=== PATIENT | female | born 1985 | race African-American/Black ===

== ENCOUNTER 2017-09-17 14:53 | Emergency (ER) | payer OTHER, BC ==
[2017-09-17 15:06] VITALS: BP 133/89; PULSE 97; TEMP 98.7; BMI 24.7
--- NOTE | 2017-09-17 15:06 | PDOC ---
Rapid Medical Evaluation Chief Complaint: Injury Time Seen by Provider: 09/17/17 15:01 Medical Evaluation: 09/17/17 15:03 I have performed a brief in-person evaluation of this patient. The patient presents with a chief complaint of: B/l hand pain after using hands to turn minor minor at work 2 days ago. No injury otherwise Pertinent physical exam findings:unremarkable I have ordered the following:nothing The patient will proceed to the ED for further evaluation.
--- NOTE | 2017-09-17 15:44 | PDOC ---
History of Present Illness - General Chief Complaint: Injury Stated Complaint: INJURY TO HANDS Time Seen by Provider: 09/17/17 15:01 History Source: Patient Past History - Past Medical History Allergies/Adverse Reactions: Allergies Allergy/AdvReac Type Severity Reaction Status Date / Time No Known Allergies Allergy Verified 09/17/17 15:06 Home Medications: Ambulatory Orders NK [No Known Home Medication] 09/17/17 COPD: No Other medical history: EXZEMA - Suicide/Smoking/Psychosocial Hx Smoking History: Never smoked Hx Alcohol Use: No Drug/Substance Use Hx: No Substance Use Type: None *Physical Exam - Vital Signs Last Vital Signs Temp Pulse Resp BP Pulse Ox 98.7 F 97 H 20 133/89 99 09/17/17 15:03 09/17/17 15:03 09/17/17 15:03 09/17/17 15:03 09/17/17 15:03 *DC/Admit/Observation/Transfer Diagnosis at time of Disposition: Wrist pain Qualifiers: Laterality: bilateral Qualified Code(s): M25.531 - Pain in right wrist Radial nerve irritation Qualifiers: Laterality: unspecified laterality Qualified Code(s): G56.30 - Lesion of radial nerve, unspecified upper limb - Discharge Dispostion Disposition: HOME Condition at time of disposition: Good Admit: No - Referrals Referrals: Sravan Villa MD [Staff Physician] - - Patient Instructions Printed Discharge Instructions: DI for Wrist Pain Additional Instructions: You irritated the radial nerves of your wrists bilaterally at work when you were twisting the minor. This should be self-limited and get better in the next couple days. Please take ibuprofen 800 mg 3 times a day not to exceed 3000 mg a day. You may ice or heat the areas, which ever feels better to you. Please by a carpal tunnel wrist splint to help with your nighttime symptoms. Please follow- up with orthopedics in 5 days if her symptoms aren't improving. Return to the emergency department if you have worsening pain, numbness and tingling, weakness in the hands, or any changes in your symptoms. - Post Discharge Activity Forms/Work/School Notes: Back to Work
== END 2017-09-17 15:54 | disposition home or self-care (01) ==
LOC: JERFT 14:53
DX: M25.531 Pain in right wrist (principal); G56.30 Lesion of radial nerve, unspecified upper limb
CPT/HCPCS: 99281-25